=== PATIENT | male | born 2005 | race Caucasian/White ===

== ENCOUNTER 2025-07-14 17:20 | Emergency (ER) | payer OTHER, BC ==
[2025-07-14] MEDS ORDERED: Acetaminophen 500 MG TAB ONE (17:44)
== END 2025-07-14 19:45 | disposition home or self-care (01) ==
LOC: ERS 17:20
DX: S09.90XA Unspecified injury of head, initial encounter (principal); R29.700 NIHSS score 0; V43.53XA Car driver injured in collision with pick-up truck in traffic accident, initial encounter; Y93.89 Activity, other specified
CPT/HCPCS: 70450; 71045